=== PATIENT | male | born 1980 | race Caucasian/White ===

== ENCOUNTER → 2021-05-17 09:16 | Outpatient (CLI) | payer OTHER, SELFPAY ==
[2021-05-17 21:23] LABS: SARS-CoV-2 RNA PCR Negative
== END ==
PROVIDERS: PCP Family Medicine; Visit Provider Nurse Practitioner Family
DX: R68.89 Other general symptoms and signs (principal); Z20.822 Contact with and (suspected) exposure to COVID-19
CPT/HCPCS: C9803; U0003; U0005

== ENCOUNTER → 2022-07-26 13:50 | Outpatient (CLI) | payer OTHER, SELFPAY ==
--- NOTE | ~2022-07-26 | US_ITS ---
EXAMINATION: US soft tissue lower back DATE: 07/26/2022 14:07 INDICATION: Subcutaneous mass at the right low back TECHNIQUE: Multiple grayscale and Doppler ultrasound images of the region of concern at the posterior right lower back were obtained. COMPARISON: None FINDINGS: 3.3 x 0.8 x 3.6 cm solid ovoid mass at the region of concern which is isoechoic and with similar echo genicity and internal septated architecture as the surrounding subcutaneous fat which would be most c onsistent with a lipoma. IMPRESSION: 1. Nonspecific 3.6 x 3.3 x 0.8 cm subcutaneous mass at the region of concern with appearance most con sistent with and statistically most likely to represent a lipoma. Reviewed, dictated and finalized at location L. IMPRESSION: 1. Nonspecific 3.6 x 3.3 x 0.8 cm subcutaneous mass at the region of concern wi appearance most consistent with and statistically most likely to represent a lipoma.
== END ==
PROVIDERS: PCP Family Medicine
DX: D17.1 Benign lipomatous neoplasm of skin and subcutaneous tissue of trunk (principal)
CPT/HCPCS: 76705